=== PATIENT | male | born 1950 | race African-American/Black ===

== ENCOUNTER 2022-06-18 05:32 | Inpatient (IN) | payer OTHER, MEDICAID ==
[~2022-06-18] VITALS: Ht 165.1 cm; Wt 58.2 kg
[2022-06-18 07:19] LABS: Basophils # (auto) 0.1 10 ^3/uL (0-0.2); Basophils % (auto) 0.5 % (0.0-2.0); Eosinophils # (auto) 0 10 ^3/uL (0-0.8); Eosinophils % (auto) 0.1 % (0.0-7.0); Hematocrit 30.2 % (41.0-53.0); Hemoglobin 9.9 g/dL (13.5-17.5); Lymphocytes # (auto) 1.1 10 ^3/uL (0.4-5.4); Lymphocytes % (auto) 6.9 % (10.0-50.0); Mean Corpuscular Hemoglobin 28.9 pg (28.0-32.0); Mean Corpuscular Hgb Conc. 32.8 g/dL (32.0-36.0); Mean Corpuscular Volume 88.2 fL (80.0-100.0); Monocytes # (auto) 0.4 10 ^3/uL (0-1.3); Monocytes % (auto) 2.4 % (0.0-12.0); Neutrophils # (auto) 14.7 10 ^3/uL (1.6-8.6); Neutrophils % (auto) 90.1 % (37.0-80.0); Red Blood Cells 3.42 10^6/uL (4.5-5.90); Red Cell Distribution Width 16.5 % (11.8-14.3); White Blood Cell 16.3 10^3/uL (4.4-10.8)
[2022-06-18 07:54] LABS: Alanine Aminotransferase 33 U/L (16-61); Albumin 2.1 g/dL (3.4-5.0); Anion Gap 10 (5-15); Aspartate Aminotransferase 20 U/L (15-37); BUN/Creatinine Ratio 22.4; Blood Urea Nitrogen 15 mg/dL (7-18); Calcium 8.8 mg/dL (8.5-10.1); Carbon Dioxide 24 mmol/L (21-32); Chloride 103 mmol/L (98-107); GFR African American 150 mL/min; GFR Non-African American 124 mL/min; Glucose 113 mg/dL (74-106); Lipase 28 U/L (73-393); Magnesium 2.1 mg/dL (1.6-2.6); Potassium 3.6 mmol/L (3.5-5.1); Sodium 137 mmol/L (136-145)
[2022-06-18 07:59] LABS: Alkaline Phosphatase 215 U/L (45-117); Bilirubin, Total 0.5 mg/dL (0.2-1.0); Total Protein 7.4 g/dL (6.4-8.2)
[2022-06-18] MEDS ORDERED: IOHEXOL 300 MG/ML 100ML BOTTLE IJ ONE (08:08)
[2022-06-18] MEDS ORDERED: LACTATED RINGER'S 2,000 ML IV ONE (08:15)
[2022-06-18] MEDS ORDERED: VANCOMYCIN 1GM/250ML 250 ML IV ONE (08:15)
[2022-06-18] MEDS ORDERED: CEFEPIME 1GM/ 50ML 50 ML IV ONE (08:15)
[2022-06-18 12:36] LABS: Urine Bacteria NONE SEEN /hpf (None Seen); Urine Blood Negative /uL (Negative); Urine Mucus FEW (None Seen); Urine WBC 1 /hpf (0 - 3)
[2022-06-18 12:40] LABS: Urine Specific Gravity > 1.050 (1.001-1.035)
[2022-06-18] MEDS ORDERED: ONDANSETRON HCL 4 MG/2 ML VIAL IV ONE (13:00)
[2022-06-18] MEDS ORDERED: NITROGLYCERIN 0.4 MG SL TAB SL PRN (13:45)
[2022-06-18] MEDS ORDERED: VANCOMYCIN PER PHARMACY 0 MG IV SCH (13:45)
[2022-06-18] MEDS ORDERED: MORPHINE SULFATE INJ 2 MG/ml SYRG IV PRN (13:45)
[2022-06-18] MEDS ORDERED: PANTOPRAZOLE 40 MG/10 ML VIAL INJ IV ONE (14:00)
[2022-06-18] MEDS: SODIUM CHLORIDE 0.9% 1,000 ML IV SCH ×2 (14:14→23:55)
[2022-06-18 18:56] VITALS: BP 122/71
[2022-06-18] MEDS: ONDANSETRON HCL 4 MG/2 ML VIAL IV PRN (21:38)
[2022-06-18] MEDS: CEFEPIME 1GM/ 50ML 50 ML IV SCH (22:16)
[2022-06-19 00:22] VITALS: BP_SYST 124; BP_SYST 128; BP_DIAS 64; BP_DIAS 74
[2022-06-19 05:00] VITALS: BP 128/74
[2022-06-19] MEDS ORDERED: LISI20TA28 PO (08:14)
[2022-06-19] MEDS ORDERED: PANT40TA2 PO (08:14)
[2022-06-19] MEDS ORDERED: QUET100T47 PO (08:22)
[2022-06-19] MEDS ORDERED: PSYL58.632 PO (08:22)
[2022-06-19] MEDS ORDERED: MAGN400T40 PO (08:22)
[2022-06-19] MEDS ORDERED: GABA100C9 PO (08:22)
[2022-06-19] MEDS: VANCOMYCIN 750mg/250ml 250 ML IV SCH (08:54)
[2022-06-19 09:00] VITALS: BP 135/81
[2022-06-19] MEDS ORDERED: ENOXAPARIN SOD 30 MG/0.3 ML SYRINGE SC SCH (10:00)
[2022-06-19] MEDS: SODIUM CHLORIDE 0.9% 1,000 ML IV SCH (10:30)
[2022-06-19] MEDS: CEFEPIME 1GM/ 50ML 50 ML IV SCH ×2 (10:43→22:03)
[2022-06-19] MEDS: PANTOPRAZOLE 40 MG/10 ML VIAL INJ IV SCH (10:43)
[2022-06-19] MEDS ORDERED: FLUCONAZOLE 200MG/100ML 100 ML IV ONE (11:30)
[2022-06-19 12:15] LABS: Basophils # (auto) 0 10 ^3/uL (0-0.2); Eosinophils # (auto) 0 10 ^3/uL (0-0.8); Eosinophils % (auto) 0.2 % (0.0-7.0); Lymphocytes # (auto) 0.7 10 ^3/uL (0.4-5.4); Monocytes # (auto) 0.3 10 ^3/uL (0-1.3); Neutrophils # (auto) 7.4 10 ^3/uL (1.6-8.6); Nucleated Red Blood Cells % 0.1 %
[2022-06-19 12:17] LABS: Basophils % (auto) 0.2 % (0.0-2.0); Hematocrit 23.8 % (41.0-53.0); Hemoglobin 7.9 g/dL (13.5-17.5); Lymphocytes % (auto) 7.7 % (10.0-50.0); Mean Corpuscular Hemoglobin 29.5 pg (28.0-32.0); Mean Corpuscular Volume 89.5 fL (80.0-100.0); Monocytes % (auto) 3.3 % (0.0-12.0); Neutrophils % (auto) 88.6 % (37.0-80.0); Red Blood Cells 2.67 10^6/uL (4.5-5.90); Red Cell Distribution Width 16.5 % (11.8-14.3); White Blood Cell 8.4 10^3/uL (4.4-10.8)
[2022-06-19 12:43] LABS: Albumin 1.6 g/dL (3.4-5.0); Potassium 3.2 mmol/L (3.5-5.1)
[2022-06-19] MEDS: ONDANSETRON HCL 4 MG/2 ML VIAL IV PRN (12:48)
[2022-06-19 12:54] LABS: BUN/Creatinine Ratio 39.3
[2022-06-19 12:59] LABS: Bilirubin, Total 0.4 mg/dL (0.2-1.0); Total Protein 5.6 g/dL (6.4-8.2)
[2022-06-19 13:00] VITALS: BP 156/70
[2022-06-19] MEDS ORDERED: Jevity 1.2 Cal/Fiber 1 Liter GT ONE (13:15)
[2022-06-19] MEDS: Jevity 1.2 Cal/Fiber 1 Liter GT SCH ×2 (14:36→18:00)
[2022-06-19] MEDS ORDERED: POTASSIUM CHL 20MEQ/100ML 100 ML IV ONE (14:45)
[2022-06-19 17:00] VITALS: BP 141/66
[2022-06-19] MEDS ORDERED: D5W/SOD CHL 0.45% 1,000 ML IV SCH (18:45)
[2022-06-19 22:00] VITALS: BP 123/74
[2022-06-20] MEDS: VANCOMYCIN 750mg/250ml 250 ML IV SCH (02:15)
[2022-06-20 05:00] VITALS: BP 138/78
[2022-06-20 08:57] VITALS: BP 138/79
[2022-06-20] MEDS ORDERED: ALBUTEROL SULF 2.5 MG/0.5ML(0.5%) NEB SOLN ONE (09:50)
[2022-06-20] MEDS ORDERED: IPRATROPIUM BROM 0.5 MG/2.5ML INH SOL ONE (09:51)
[2022-06-20] MEDS: FLUCONAZOLE 200MG/100ML 100 ML IV SCH (10:00)
[2022-06-20] MEDS ORDERED: methylPREDNISolone SOD SUCC 125 MG/2 ML VL IV ONE ×2 (10:00→10:30)
[2022-06-20] MEDS ORDERED: ALBUTEROL SULF 2.5 MG/0.5ML(0.5%) NEB SOLN NEB ONE (10:30)
[2022-06-20] MEDS ORDERED: PPN PER PHARMACY 0 ML IV SCH (10:30)
[2022-06-20] MEDS ORDERED: MEROPENEM 1GM IVPB 100 ML IV ONE (10:30)
[2022-06-20 11:25] LABS: Basophils # (auto) 0 10 ^3/uL (0-0.2); Basophils % (auto) 0.2 % (0.0-2.0); Eosinophils # (auto) 0 10 ^3/uL (0-0.8); Eosinophils % (auto) 0.1 % (0.0-7.0); Hematocrit 26.9 % (41.0-53.0); Hemoglobin 8.3 g/dL (13.5-17.5); Lymphocytes # (auto) 0.7 10 ^3/uL (0.4-5.4); Lymphocytes % (auto) 11.4 % (10.0-50.0); Mean Corpuscular Hemoglobin 28.8 pg (28.0-32.0); Mean Corpuscular Volume 92.9 fL (80.0-100.0); Monocytes # (auto) 0.2 10 ^3/uL (0-1.3); Monocytes % (auto) 3.3 % (0.0-12.0); Neutrophils # (auto) 5.6 10 ^3/uL (1.6-8.6); Nucleated Red Blood Cells % 0.1 %; Red Blood Cells 2.89 10^6/uL (4.5-5.90); Red Cell Distribution Width 17.3 % (11.8-14.3); White Blood Cell 6.6 10^3/uL (4.4-10.8)
[2022-06-20] MEDS: ALBUTEROL SULF 2.5 MG/0.5ML(0.5%) NEB SOLN NEB SCH ×2 (11:55→18:00)
[2022-06-20] MEDS: IPRATROPIUM BROM 0.5 MG/2.5ML INH SOL NEB SCH ×2 (11:55→18:00)
[2022-06-20] MEDS ORDERED: ALBUTEROL SULF 2.5 MG/0.5ML(0.5%) NEB SOLN NEB SCH (12:00)
[2022-06-20] MEDS ORDERED: IPRATROPIUM BROM 0.5 MG/2.5ML INH SOL NEB SCH (12:00)
[2022-06-20 12:23] LABS: Albumin 1.7 g/dL (3.4-5.0); BUN/Creatinine Ratio 23.5; Calcium 7.9 mg/dL (8.5-10.1); Potassium 3.6 mmol/L (3.5-5.1)
[2022-06-20 12:26] LABS: Bilirubin, Total 0.4 mg/dL (0.2-1.0); Phosphorus 2.3 mg/dL (2.5-4.90); Total Protein 6.2 g/dL (6.4-8.2)
[2022-06-20 13:14] VITALS: BP 143/81
[2022-06-20] MEDS: D5W/SOD CHL 0.45% 1,000 ML IV SCH (14:48)
[2022-06-20] MEDS: VANCOMYCIN HCL 125MG/5ML ORAL SOL PO SCH ×2 (14:52→20:00)
[2022-06-20] MEDS: methylPREDNISolone SOD SUCC 40 MG/ML VL IV SCH ×2 (14:53→22:13)
[2022-06-20] MEDS: PANTOPRAZOLE 40 MG/10 ML VIAL INJ IV SCH (14:54)
[2022-06-20] MEDS: ENOXAPARIN SOD 40 MG/0.4 ML SYRINGE SC SCH (14:54)
[2022-06-20 17:11] VITALS: BP 130/70
[2022-06-20] MEDS ORDERED: metroNIDAZOLE 500 MG TAB PO SCH (18:00)
[2022-06-20] MEDS: MEROPENEM 1GM IVPB 100 ML IV SCH ×2 (19:37→23:20)
[2022-06-20] MEDS ORDERED: DEXTROSE (50%) 50ML SYRG IV SCH (20:00)
[2022-06-20] MEDS ORDERED: PPN PER PHARMACY IV NR ×9 (20:00)
[2022-06-20 22:00] VITALS: BP 157/86
[2022-06-21] MEDS: ACCU-CHEK COMFORT CURVE STRIP VI SCH ×3 (00:19→13:02)
[2022-06-21] MEDS: InsuLIN REG 1unit/0.01ml Soln (100units/ml) SC SCH ×3 (00:29→13:07)
[2022-06-21] MEDS: D5W/SOD CHL 0.45% 1,000 ML IV SCH (00:29)
[2022-06-21] MEDS: VANCOMYCIN HCL 125MG/5ML ORAL SOL PO SCH ×4 (02:00→21:52)
[2022-06-21 05:00] VITALS: BP 155/86
[2022-06-21 05:58] LABS: Basophils # (auto) 0 10 ^3/uL (0-0.2); Basophils % (auto) 0.2 % (0.0-2.0); Eosinophils # (auto) 0 10 ^3/uL (0-0.8); Hematocrit 23.8 % (41.0-53.0); Lymphocytes # (auto) 0.3 10 ^3/uL (0.4-5.4); Lymphocytes % (auto) 7.1 % (10.0-50.0); Mean Corpuscular Hemoglobin 29.1 pg (28.0-32.0); Mean Corpuscular Hgb Conc. 33.7 g/dL (32.0-36.0); Mean Corpuscular Volume 86.3 fL (80.0-100.0); Monocytes # (auto) 0.1 10 ^3/uL (0-1.3); Monocytes % (auto) 1.1 % (0.0-12.0); Neutrophils # (auto) 4.4 10 ^3/uL (1.6-8.6); Neutrophils % (auto) 91.6 % (37.0-80.0); Red Blood Cells 2.76 10^6/uL (4.5-5.90); Red Cell Distribution Width 16.7 % (11.8-14.3); White Blood Cell 4.8 10^3/uL (4.4-10.8)
[2022-06-21] MEDS: MEROPENEM 1GM IVPB 100 ML IV SCH ×3 (05:59→21:52)
[2022-06-21] MEDS: methylPREDNISolone SOD SUCC 40 MG/ML VL IV SCH ×3 (05:59→21:50)
[2022-06-21 06:11] LABS: Albumin 1.7 g/dL (3.4-5.0); Calcium 7.4 mg/dL (8.5-10.1); Magnesium 1.8 mg/dL (1.6-2.6); Potassium 3.6 mmol/L (3.5-5.1)
[2022-06-21 06:16] LABS: BUN/Creatinine Ratio 28.2; Bilirubin, Total 0.3 mg/dL (0.2-1.0); Phosphorus 2.7 mg/dL (2.5-4.90); Total Protein 5.4 g/dL (6.4-8.2)
[2022-06-21] MEDS: IPRATROPIUM BROM 0.5 MG/2.5ML INH SOL NEB SCH ×3 (06:26→18:00)
[2022-06-21] MEDS: ALBUTEROL SULF 2.5 MG/0.5ML(0.5%) NEB SOLN NEB SCH ×4 (06:26→18:00)
[2022-06-21 09:00] VITALS: BP 166/87
[2022-06-21] MEDS: FLUCONAZOLE 200MG/100ML 100 ML IV SCH (10:09)
[2022-06-21] MEDS: ENOXAPARIN SOD 40 MG/0.4 ML SYRINGE SC SCH (10:09)
[2022-06-21] MEDS: PANTOPRAZOLE 40 MG/10 ML VIAL INJ IV SCH (10:09)
[2022-06-21 13:00] VITALS: BP 153/75
[2022-06-21 17:06] VITALS: BP 163/102
[2022-06-21] MEDS ORDERED: PPN PER PHARMACY IV NR ×10 (20:00)
[2022-06-21 22:00] VITALS: BP 153/78
[2022-06-22] VITALS (7 sets, daily range): BP systolic 140–160; BP diastolic 73–81
[2022-06-22] MEDS: VANCOMYCIN HCL 125MG/5ML ORAL SOL PO SCH ×4 (02:51→20:51)
[2022-06-22] MEDS: methylPREDNISolone SOD SUCC 40 MG/ML VL IV SCH (05:55)
[2022-06-22] MEDS: MEROPENEM 1GM IVPB 100 ML IV SCH ×3 (05:55→22:24)
[2022-06-22] MEDS: IPRATROPIUM BROM 0.5 MG/2.5ML INH SOL NEB SCH ×3 (06:36→18:00)
[2022-06-22] MEDS: ALBUTEROL SULF 2.5 MG/0.5ML(0.5%) NEB SOLN NEB SCH ×4 (06:36→18:00)
[2022-06-22] MEDS ORDERED: IOHEXOL 350 MG/ML 100ML IJ ONE (09:11)
[2022-06-22] MEDS: ENOXAPARIN SOD 40 MG/0.4 ML SYRINGE SC SCH (10:37)
[2022-06-22] MEDS: PANTOPRAZOLE 40 MG/10 ML VIAL INJ IV SCH (10:37)
[2022-06-22] MEDS: FLUCONAZOLE 200MG/100ML 100 ML IV SCH (10:37)
[2022-06-22 13:25] LABS: Basophils # (auto) 0 10 ^3/uL (0-0.2); Eosinophils # (auto) 0 10 ^3/uL (0-0.8); Hemoglobin 8.9 g/dL (13.5-17.5); Lymphocytes # (auto) 0.3 10 ^3/uL (0.4-5.4); Lymphocytes % (auto) 6.3 % (10.0-50.0); Monocytes # (auto) 0.1 10 ^3/uL (0-1.3)
[2022-06-22 13:27] LABS: Basophils % (auto) 0.2 % (0.0-2.0); Eosinophils % (auto) 0.1 % (0.0-7.0); Hematocrit 26.2 % (41.0-53.0); Mean Corpuscular Hemoglobin 28.5 pg (28.0-32.0); Mean Corpuscular Volume 83.7 fL (80.0-100.0); Monocytes % (auto) 1.8 % (0.0-12.0); Neutrophils # (auto) 4.1 10 ^3/uL (1.6-8.6); Neutrophils % (auto) 91.6 % (37.0-80.0); Nucleated Red Blood Cells % 0.1 %; Red Blood Cells 3.13 10^6/uL (4.5-5.90); Red Cell Distribution Width 16.7 % (11.8-14.3); White Blood Cell 4.5 10^3/uL (4.4-10.8)
[2022-06-22 13:49] LABS: Albumin 2.1 g/dL (3.4-5.0); BUN/Creatinine Ratio 36.1; Calcium 8.1 mg/dL (8.5-10.1); Magnesium 1.9 mg/dL (1.6-2.6); Potassium 3.2 mmol/L (3.5-5.1)
[2022-06-22 13:51] LABS: Bilirubin, Total 0.3 mg/dL (0.2-1.0); Phosphorus 1.8 mg/dL (2.5-4.90); Total Protein 6.4 g/dL (6.4-8.2)
[2022-06-22] MEDS ORDERED: cloNIDine HCL 0.1 MG TAB PO ONE (22:45)
[2022-06-23] MEDS: ALBUTEROL SULF 2.5 MG/0.5ML(0.5%) NEB SOLN NEB SCH ×4 (00:53→19:11)
[2022-06-23] MEDS: VANCOMYCIN HCL 125MG/5ML ORAL SOL PO SCH ×4 (02:46→20:00)
[2022-06-23 05:00] VITALS: BP 159/53
[2022-06-23] MEDS: MEROPENEM 1GM IVPB 100 ML IV SCH ×2 (05:43→14:32)
[2022-06-23] MEDS: SALINE 0.65 % NASAL SPRAY 45ML BOTTLE EACHNOSTRI SCH ×3 (05:55→18:05)
[2022-06-23] MEDS: IPRATROPIUM BROM 0.5 MG/2.5ML INH SOL NEB SCH ×3 (06:00→19:11)
[2022-06-23 08:00] VITALS: BP 156/79
[2022-06-23 09:00] VITALS: BP 156/79
[2022-06-23] MEDS: ENOXAPARIN SOD 40 MG/0.4 ML SYRINGE SC SCH (09:30)
[2022-06-23] MEDS: FLUCONAZOLE 200MG/100ML 100 ML IV SCH (09:30)
[2022-06-23] MEDS: PANTOPRAZOLE 40 MG/10 ML VIAL INJ IV SCH (09:30)
[2022-06-23] MEDS ORDERED: FLORASTOR (S. BOULARDII) 250 MG CAP PO SCH (10:00)
[2022-06-23] MEDS ORDERED: LISINOPRIL 20 MG TAB PO ONE (11:30)
[2022-06-23] MEDS ORDERED: FLUC40SU7 GT (11:32)
[2022-06-23] MEDS ORDERED: VANC125PO GT (11:32)
[2022-06-23 13:00] VITALS: BP 165/88
[2022-06-23 14:05] VITALS: BP 156/79
[2022-06-23 16:50] VITALS: BP 170/99
[2022-06-24] MEDS ORDERED: LISINOPRIL 20 MG TAB PO SCH (10:00)
== END 2022-06-23 21:00 | disposition home health service (06) | DRG 371 ==
LOC: EDBD 05:32 → ER 05:32 → TELE 13:36 → TELE-WESTW 22:49
PROVIDERS: ADMIT Nurse Practitioner Family; ATTEND Internal Medicine
PROC: 05H933Z Insertion of Infusion Device into Right Brachial Vein, Percutaneous Approach (ICD-10-PCS; principal; 2022-06-23)
PROC: B54MZZA Ultrasonography of Right Upper Extremity Veins, Guidance (ICD-10-PCS; 2022-06-23)
DX: A04.72 Enterocolitis due to Clostridium difficile, not specified as recurrent (principal); E43 Unspecified severe protein-calorie malnutrition; J96.10 Chronic respiratory failure, unspecified whether with hypoxia or hypercapnia; R18.8 Other ascites; K94.22 Gastrostomy infection; Z68.1 Body mass index [BMI] 19.9 or less, adult; B96.1 Klebsiella pneumoniae [K. pneumoniae] as the cause of diseases classified elsewhere; Y83.3 Surgical operation with formation of external stoma as the cause of abnormal reaction of the patient, or of later complication, without mention of misadventure at the time of the procedure; B96.20 Unspecified Escherichia coli [E. coli] as the cause of diseases classified elsewhere; D64.9 Anemia, unspecified; Z80.8 Family history of malignant neoplasm of other organs or systems; Z85.819 Personal history of malignant neoplasm of unspecified site of lip, oral cavity, and pharynx; Z85.89 Personal history of malignant neoplasm of other organs and systems; Z51.5 Encounter for palliative care
CPT/HCPCS: 31720; 36415; 71045; 71275; 74177; 80053; 81001; 82962; 83605; 83690; 83735; 84100; 84132; 84478; 84484; 85025; 87040; 87070; 87077; 87086; 87186; 87205; 87426; 87493; 93005; 94640; 96365; 96366; 96367; 96375; 96376; 99291; C9113; G0378; J1450; J1815; J2185; J2405; J3480

== ENCOUNTER 2022-06-28 21:18 | Inpatient (IN) | payer OTHER, MEDICAID ==
[~2022-06-28] VITALS: Ht 170.2 cm; Wt 65.9 kg
[~2022-06-28 21:18] MED LIST: FLUC40SU7 GT; GABA100C9 PO; LISI20TA28 PO; MAGN400T40 PO; PANT40TA2 PO; PSYL58.632 PO; QUET100T47 PO; VANC125PO GT
[2022-06-28 22:43] LABS: Basophils # (auto) 0 10 ^3/uL (0-0.2); Basophils % (auto) 0.2 % (0.0-2.0); Eosinophils # (auto) 0 10 ^3/uL (0-0.8); Eosinophils % (auto) 0.4 % (0.0-7.0); Hematocrit 26.4 % (41.0-53.0); Hemoglobin 8.7 g/dL (13.5-17.5); Lymphocytes # (auto) 0.6 10 ^3/uL (0.4-5.4); Lymphocytes % (auto) 8.4 % (10.0-50.0); Mean Corpuscular Hemoglobin 28.9 pg (28.0-32.0); Mean Corpuscular Hgb Conc. 32.9 g/dL (32.0-36.0); Mean Corpuscular Volume 87.9 fL (80.0-100.0); Monocytes # (auto) 0.2 10 ^3/uL (0-1.3); Monocytes % (auto) 2.7 % (0.0-12.0); Neutrophils # (auto) 6.6 10 ^3/uL (1.6-8.6); Neutrophils % (auto) 88.3 % (37.0-80.0); Nucleated Red Blood Cells % 0.1 %; Red Blood Cells 3.01 10^6/uL (4.5-5.90); Red Cell Distribution Width 17.7 % (11.8-14.3); White Blood Cell 7.5 10^3/uL (4.4-10.8)
[2022-06-28 22:56] LABS: Partial Thromboplastin Time 28.3 sec (24.6-33.4)
[2022-06-28 23:00] VITALS: BP 124/74
[2022-06-28 23:00] LABS: Albumin 2.2 g/dL (3.4-5.0); BUN/Creatinine Ratio 39.4; Calcium 8.3 mg/dL (8.5-10.1); Potassium 4.1 mmol/L (3.5-5.1)
[2022-06-28 23:03] LABS: Bilirubin, Total 0.3 mg/dL (0.2-1.0); Total Protein 6.1 g/dL (6.4-8.2)
[2022-06-29 00:50] LABS: Urine Amorphous Crystal FEW /hpf (None Seen); Urine Bacteria NONE SEEN /hpf (None Seen); Urine Blood Negative /uL (Negative); Urine Mucus FEW (None Seen); Urine Specific Gravity 1.016 (1.001-1.035); Urine WBC 2 /hpf (0 - 3)
[2022-06-29] MEDS ORDERED: ONDANSETRON HCL 4 MG/2 ML VIAL IV PRN (01:00)
[2022-06-29] MEDS ORDERED: NITROGLYCERIN 0.4 MG SL TAB SL PRN (01:00)
[2022-06-29] MEDS ORDERED: ALBUMIN 25% 100 ML IV ONE (01:00)
[2022-06-29] MEDS ORDERED: MORPHINE SULFATE INJ 2 MG/ml SYRG IV PRN ×2 (01:00)
[2022-06-29] MEDS ORDERED: ACETAMINOPHEN 650 mg PER 20.3 mL UD GT PRN (01:00)
[2022-06-29] MEDS: D5W/SOD CHLO 0.9% 1,000 ML IV SCH ×2 (02:32→16:27)
[2022-06-29 05:58] LABS: Potassium 4.6 mmol/L (3.5-5.1)
[2022-06-29 06:16] LABS: Albumin 2.1 g/dL (3.4-5.0); BUN/Creatinine Ratio 37.9; Bilirubin, Total 0.4 mg/dL (0.2-1.0); Calcium 8.3 mg/dL (8.5-10.1)
[2022-06-29] MEDS ORDERED: PANTOPRAZOLE 40 MG/10 ML VIAL INJ IV SCH (10:00)
[2022-06-29] MEDS ORDERED: IOHEXOL 350 MG/ML 100ML IJ ONE (11:49)
[2022-06-29 12:52] LABS: Basophils # (auto) 0 10 ^3/uL (0-0.2); Basophils % (auto) 0.3 % (0.0-2.0); Eosinophils # (auto) 0 10 ^3/uL (0-0.8); Eosinophils % (auto) 0.7 % (0.0-7.0); Hematocrit 25.3 % (41.0-53.0); Hemoglobin 8.3 g/dL (13.5-17.5); Lymphocytes # (auto) 1.3 10 ^3/uL (0.4-5.4); Lymphocytes % (auto) 22.5 % (10.0-50.0); Mean Corpuscular Hemoglobin 28.9 pg (28.0-32.0); Mean Corpuscular Volume 87.7 fL (80.0-100.0); Monocytes # (auto) 0.3 10 ^3/uL (0-1.3); Monocytes % (auto) 4.9 % (0.0-12.0); Neutrophils % (auto) 71.6 % (37.0-80.0); Nucleated Red Blood Cells % 0.1 %; Red Blood Cells 2.88 10^6/uL (4.5-5.90); Red Cell Distribution Width 17.6 % (11.8-14.3); White Blood Cell 5.6 10^3/uL (4.4-10.8)
[2022-06-29] MEDS ORDERED: levoFLOXacin 750MG 150 ML IV ONE (13:00)
[2022-06-29] MEDS ORDERED: Jevity 1.2 Cal/Fiber 1 Liter GT SCH (17:15)
[2022-06-29] MEDS ORDERED: LEVO750T8 PO (17:17)
[2022-06-29 21:10] VITALS: BP 137/79
[2022-06-30] MEDS ORDERED: levoFLOXacin 750MG 150 ML IV SCH (10:00)
== END 2022-06-29 21:13 | disposition home or self-care (01) | DRG 206 ==
LOC: EDBD 21:18 → ER 21:18 → TELE 06-29 01:04
PROVIDERS: ADMIT Nurse Practitioner Family; ATTEND Internal Medicine Pulmonary Disease
DX: J95.01 Hemorrhage from tracheostomy stoma (principal); E46 Unspecified protein-calorie malnutrition; E87.1 Hypo-osmolality and hyponatremia; R04.2 Hemoptysis; Z20.822 Contact with and (suspected) exposure to COVID-19; Y83.8 Other surgical procedures as the cause of abnormal reaction of the patient, or of later complication, without mention of misadventure at the time of the procedure; D50.0 Iron deficiency anemia secondary to blood loss (chronic); E88.09 Other disorders of plasma-protein metabolism, not elsewhere classified; Z85.819 Personal history of malignant neoplasm of unspecified site of lip, oral cavity, and pharynx; Z68.22 Body mass index [BMI] 22.0-22.9, adult; Z92.3 Personal history of irradiation; Y92.89 Other specified places as the place of occurrence of the external cause
CPT/HCPCS: 36415; 70498; 71045; 71275; 80053; 81001; 85025; 85610; 85730; 87426; 93005; 96361; 96365; 96375; A4605; C9113; G0378; J1956; J7042

== ENCOUNTER 2022-07-19 07:40 | Inpatient (IN) | payer OTHER, MEDICAID ==
[~2022-07-19] VITALS: Ht 165.1 cm; Wt 48.8 kg
[~2022-07-19 07:40] MED LIST changes: +LEVO750T8 PO
[2022-07-19 08:40] LABS: Basophils # (auto) 0 10 ^3/uL (0-0.2); Eosinophils # (auto) 0 10 ^3/uL (0-0.8); Eosinophils % (auto) 1.2 % (0.0-7.0); Monocytes # (auto) 0.1 10 ^3/uL (0-1.3); Neutrophils # (auto) 3.4 10 ^3/uL (1.6-8.6); Red Cell Distribution Width 16.6 % (11.8-14.3)
[2022-07-19 08:42] LABS: Basophils % (auto) 0.3 % (0.0-2.0); Hematocrit 21.4 % (41.0-53.0); Lymphocytes # (auto) 0.6 10 ^3/uL (0.4-5.4); Mean Corpuscular Hemoglobin 27.8 pg (28.0-32.0); Mean Corpuscular Hgb Conc. 32.5 g/dL (32.0-36.0); Mean Corpuscular Volume 85.5 fL (80.0-100.0); Monocytes % (auto) 2.2 % (0.0-12.0); Neutrophils % (auto) 82.3 % (37.0-80.0); Nucleated Red Blood Cells % 0.1 %; Red Blood Cells 2.51 10^6/uL (4.5-5.90); White Blood Cell 4.2 10^3/uL (4.4-10.8)
[2022-07-19 09:11] LABS: INR 1.05 (0.9-1.15); Partial Thromboplastin Time 27.7 sec (24.6-33.4)
[2022-07-19 09:36] LABS: Albumin 2.5 g/dL (3.4-5.0); Calcium 9.3 mg/dL (8.5-10.1); Potassium 3.9 mmol/L (3.5-5.1)
[2022-07-19 09:40] LABS: BUN/Creatinine Ratio 24.3 (10.0-20.0); Bilirubin, Total 0.3 mg/dL (0.2-1.0); Total Protein 7.4 g/dL (6.4-8.2)
[2022-07-19] MEDS ORDERED: ONDANSETRON HCL 4 MG/2 ML VIAL IV ONE (09:45)
[2022-07-19] MEDS ORDERED: MORPHINE SULFATE INJ 2 MG/ml SYRG IV ONE (09:45)
[2022-07-19] MEDS ORDERED: MORPHINE SULFATE INJ 2 MG/ml SYRG IV PRN ×2 (10:45→14:15)
[2022-07-19] MEDS ORDERED: NITROGLYCERIN 0.4 MG SL TAB SL PRN (10:45)
[2022-07-19] MEDS ORDERED: GASTROGRAFIN 30 ML SOL ONE (11:02)
[2022-07-19] MEDS ORDERED: ceFAZolin 1GM/50ML 50 ML IV ONE (11:15)
[2022-07-19 11:20] LABS: % Iron Saturation 5.6 % (20-55)
[2022-07-19 11:38] LABS: Ferritin 27.4 ng/mL (10-322)
[2022-07-19 13:17] VITALS: BP 141/79
[2022-07-19 13:18] LABS: Cholesterol 172 mg/dL (< 200); Triglycerides 62 mg/dL (< 150)
[2022-07-19 13:22] LABS: HDL Cholesterol 49 mg/dL (40-59); LDL Cholesterol 133 mg/dL (< 100)
[2022-07-19] MEDS ORDERED: hydrALAZINE HCL 20 MG/ML VL IV PRN (13:30)
[2022-07-19 13:34] VITALS: BP 146/76
[2022-07-19 14:20] VITALS: BP 146/76
[2022-07-19] MEDS: GABAPENTIN 100 MG CAP PO SCH ×2 (14:39→23:23)
[2022-07-19 15:12] LABS: Urine Bacteria FEW /hpf (None Seen); Urine Blood Negative /uL (Negative); Urine Specific Gravity 1.011 (1.001-1.035); Urine WBC <1 /hpf (0 - 3)
[2022-07-19] MEDS: Ensure HIGH Protein Vanilla 8oz Bottle PO SCH ×2 (15:53→19:00)
[2022-07-19 16:10] VITALS: BP 152/74
[2022-07-19 17:49] LABS: Eosinophils # (auto) 0.1 10 ^3/uL (0-0.8); Hemoglobin 11.1 g/dL (13.5-17.5); Lymphocytes # (auto) 0.8 10 ^3/uL (0.4-5.4); Monocytes # (auto) 0.1 10 ^3/uL (0-1.3); Nucleated Red Blood Cells % 0.1 %; Red Blood Cells 4.01 10^6/uL (4.5-5.90)
[2022-07-19 17:51] LABS: Basophils # (auto) 0.2 10 ^3/uL (0-0.2); Basophils % (auto) 4.3 % (0.0-2.0); Eosinophils % (auto) 1.3 % (0.0-7.0); Hematocrit 33.2 % (41.0-53.0); Lymphocytes % (auto) 18.6 % (10.0-50.0); Mean Corpuscular Hemoglobin 27.7 pg (28.0-32.0); Mean Corpuscular Hgb Conc. 33.5 g/dL (32.0-36.0); Mean Corpuscular Volume 82.8 fL (80.0-100.0); Neutrophils # (auto) 3.2 10 ^3/uL (1.6-8.6); Neutrophils % (auto) 72.8 % (37.0-80.0); Red Cell Distribution Width 16.6 % (11.8-14.3); White Blood Cell 4.4 10^3/uL (4.4-10.8)
[2022-07-19] MEDS ORDERED: SALINE 0.65 % NASAL SPRAY 45ML BOTTLE EACHNOSTRI PRN (18:30)
[2022-07-19] MEDS: MORPHINE SULFATE INJ 2 MG/ml SYRG IV PRN (18:51)
[2022-07-19] MEDS: PANTOPRAZOLE 40 MG/10 ML VIAL INJ IV SCH (23:20)
[2022-07-19] MEDS: QUEtiapine FUMARATE 100 MG TAB PO SCH (23:23)
[2022-07-20] MEDS: MORPHINE SULFATE INJ 2 MG/ml SYRG IV PRN (00:02)
[2022-07-20] MEDS ORDERED: NALOXONE HCL 0.4 MG/ML VIAL ONE (00:13)
[2022-07-20] MEDS ORDERED: NALOXONE HCL 0.4 MG/ML VIAL IV ONE (00:30)
[2022-07-20 01:25] VITALS: BP 144/82
[2022-07-20] MEDS: GABAPENTIN 100 MG CAP PO SCH ×3 (06:16→22:00)
[2022-07-20 09:07] LABS: Basophils # (auto) 0 10 ^3/uL (0-0.2); Eosinophils # (auto) 0 10 ^3/uL (0-0.8); Lymphocytes # (auto) 0.7 10 ^3/uL (0.4-5.4); Lymphocytes % (auto) 16.4 % (10.0-50.0); Mean Corpuscular Hgb Conc. 33.7 g/dL (32.0-36.0); Monocytes # (auto) 0.1 10 ^3/uL (0-1.3); Monocytes % (auto) 2.5 % (0.0-12.0); White Blood Cell 4.4 10^3/uL (4.4-10.8)
[2022-07-20 09:09] LABS: Basophils % (auto) 0.1 % (0.0-2.0); Eosinophils % (auto) 0.3 % (0.0-7.0); Hematocrit 26.4 % (41.0-53.0); Hemoglobin 8.9 g/dL (13.5-17.5); Mean Corpuscular Hemoglobin 28.2 pg (28.0-32.0); Mean Corpuscular Volume 83.5 fL (80.0-100.0); Neutrophils # (auto) 3.6 10 ^3/uL (1.6-8.6); Neutrophils % (auto) 80.7 % (37.0-80.0); Nucleated Red Blood Cells % 0.1 %; Red Blood Cells 3.17 10^6/uL (4.5-5.90); Red Cell Distribution Width 16.6 % (11.8-14.3)
[2022-07-20 09:21] LABS: Albumin 2.4 g/dL (3.4-5.0); Calcium 9.6 mg/dL (8.5-10.1); Potassium 4.2 mmol/L (3.5-5.1)
[2022-07-20 09:24] LABS: BUN/Creatinine Ratio 31.3 (10.0-20.0); Bilirubin, Total 0.4 mg/dL (0.2-1.0)
[2022-07-20] MEDS: Ensure HIGH Protein Vanilla 8oz Bottle PO SCH ×3 (09:53→18:00)
[2022-07-20] MEDS: PSYLLIUM PWD 5.8GM PKG PO SCH (10:00)
[2022-07-20] MEDS: MAGNESIUM OXIDE 400 MG TAB PO SCH (10:00)
[2022-07-20] MEDS: LISINOPRIL 20 MG TAB PO SCH (10:00)
[2022-07-20] MEDS: PANTOPRAZOLE 40 MG/10 ML VIAL INJ IV SCH ×2 (11:08→22:35)
[2022-07-20 11:57] LABS: Folate (Folic Acid) 19.47 ng/mL (5.38-24)
[2022-07-20] MEDS ORDERED: GASTROGRAFIN 30 ML SOL ONE (17:48)
[2022-07-20 22:00] VITALS: BP 153/83
[2022-07-20] MEDS: QUEtiapine FUMARATE 100 MG TAB PO SCH (22:00)
[2022-07-20 22:53] VITALS: BP 148/85
[2022-07-21 05:00] VITALS: BP 136/83
[2022-07-21] MEDS: GABAPENTIN 100 MG CAP PO SCH (05:10)
[2022-07-21 05:31] LABS: Basophils # (auto) 0 10 ^3/uL (0-0.2); Eosinophils # (auto) 0 10 ^3/uL (0-0.8)
[2022-07-21 05:33] LABS: Basophils % (auto) 1.1 % (0.0-2.0); Eosinophils % (auto) 0.7 % (0.0-7.0); Hematocrit 30.1 % (41.0-53.0); Hemoglobin 9.9 g/dL (13.5-17.5); Lymphocytes # (auto) 0.7 10 ^3/uL (0.4-5.4); Mean Corpuscular Hemoglobin 27.6 pg (28.0-32.0); Mean Corpuscular Hgb Conc. 32.7 g/dL (32.0-36.0); Mean Corpuscular Volume 84.3 fL (80.0-100.0); Monocytes # (auto) 0.1 10 ^3/uL (0-1.3); Monocytes % (auto) 3.7 % (0.0-12.0); Neutrophils # (auto) 2.8 10 ^3/uL (1.6-8.6); Neutrophils % (auto) 75.5 % (37.0-80.0); Nucleated Red Blood Cells % 0.4 %; Red Blood Cells 3.57 10^6/uL (4.5-5.90); Red Cell Distribution Width 16.1 % (11.8-14.3); White Blood Cell 3.7 10^3/uL (4.4-10.8)
[2022-07-21 05:51] LABS: Alanine Aminotransferase 22 U/L (16-61); Albumin 2.5 g/dL (3.4-5.0); Anion Gap 9 (5-15); Aspartate Aminotransferase 29 U/L (15-37); BUN/Creatinine Ratio 25.6 (10.0-20.0); Blood Urea Nitrogen 11 mg/dL (7-18); Calcium 9.9 mg/dL (8.5-10.1); Carbon Dioxide 19 mmol/L (21-32); Chloride 106 mmol/L (98-107); GFR African American 250 mL/min; GFR Non-African American 207 mL/min; Glucose 86 mg/dL (74-106); Potassium 4.3 mmol/L (3.5-5.1); Sodium 134 mmol/L (136-145)
[2022-07-21 05:54] LABS: Alkaline Phosphatase 120 U/L (45-117); Bilirubin, Total 0.5 mg/dL (0.2-1.0); Total Protein 7.7 g/dL (6.4-8.2)
[2022-07-21] MEDS: Ensure HIGH Protein Vanilla 8oz Bottle PO SCH ×2 (08:00→11:37)
[2022-07-21 09:00] VITALS: BP 141/91
[2022-07-21] MEDS: LISINOPRIL 20 MG TAB PO SCH (10:00)
[2022-07-21] MEDS: MAGNESIUM OXIDE 400 MG TAB PO SCH (10:00)
[2022-07-21] MEDS: PSYLLIUM PWD 5.8GM PKG PO SCH (10:00)
[2022-07-21] MEDS: PANTOPRAZOLE 40 MG/10 ML VIAL INJ IV SCH (10:15)
[2022-07-21 13:00] VITALS: BP 164/92
[2022-07-21] MEDS: Ensure HIGH Protein Vanilla 8oz Bottle GT SCH ×2 (13:22→18:47)
[2022-07-21] MEDS ORDERED: PANT40TA2 GT (13:25)
[2022-07-21] MEDS ORDERED: GABAPENTIN 250 MG GT SCH (14:00)
[2022-07-21 17:09] VITALS: BP 152/96
[2022-07-21] MEDS ORDERED: OMEP-434 GT (20:01)
[2022-07-21] MEDS ORDERED: QUEtiapine FUMARATE 100 MG TAB GT SCH (22:00)
[2022-07-22] MEDS ORDERED: LISINOPRIL 20 MG TAB GT SCH (10:00)
[2022-07-22] MEDS ORDERED: PSYLLIUM PWD 5.8GM PKG GT SCH (10:00)
[2022-07-22] MEDS ORDERED: MAGNESIUM OXIDE 400 MG TAB GT SCH (10:00)
[2022-07-22] MEDS ORDERED: OMEP-434 PO (13:05)
== END 2022-07-21 21:10 | disposition home health service (06) | DRG 393 ==
LOC: EDBD 07:40 → ER 07:40 → TELE 10:52 → TELE-EAST 07-20 21:00
PROVIDERS: ADMIT Registered Nurse; ATTEND Internal Medicine
PROC: 30233N1 Transfusion of Nonautologous Red Blood Cells into Peripheral Vein, Percutaneous Approach (ICD-10-PCS; principal; 2022-07-19)
PROC: 0DP6XUZ Removal of Feeding Device from Stomach, External Approach (ICD-10-PCS; 2022-07-19)
PROC: 0DH63UZ Insertion of Feeding Device into Stomach, Percutaneous Approach (ICD-10-PCS; 2022-07-19)
DX: K94.23 Gastrostomy malfunction (principal); E43 Unspecified severe protein-calorie malnutrition; C78.00 Secondary malignant neoplasm of unspecified lung; Z68.1 Body mass index [BMI] 19.9 or less, adult; D64.9 Anemia, unspecified; I10 Essential (primary) hypertension; C06.9 Malignant neoplasm of mouth, unspecified; R82.4 Acetonuria; Y83.8 Other surgical procedures as the cause of abnormal reaction of the patient, or of later complication, without mention of misadventure at the time of the procedure; Y82.8 Other medical devices associated with adverse incidents; K59.00 Constipation, unspecified; E11.9 Type 2 diabetes mellitus without complications; R13.10 Dysphagia, unspecified; Z20.822 Contact with and (suspected) exposure to COVID-19; Z87.891 Personal history of nicotine dependence; Z85.89 Personal history of malignant neoplasm of other organs and systems; Z92.21 Personal history of antineoplastic chemotherapy; Z92.3 Personal history of irradiation
CPT/HCPCS: 36415; 71045; 74018; 74176; 80053; 80061; 81001; 82270; 82607; 82728; 82746; 83036; 83540; 83550; 83615; 84443; 84484; 85025; 85384; 85610; 85730; 86850; 86900; 86901; 86920; 87086; 87426; 96365; 96375; C9113; G0378; J0690; J2405